=== PATIENT | female | born 1995 | race Caucasian/White ===

== ENCOUNTER 2023-09-27 15:08 | Emergency (ER) | payer BC, SELFPAY ==
[2023-09-27 15:24] VITALS: BP 118/74; PULSE 75; RESP 16; TEMP 36.2; O2SAT 100; BMI 28.2
--- NOTE | 2023-09-27 15:37 | ED_ITS ---
HPI - General Adult General Chief complaint: Extremity Pain/Injury, Upper Stated complaint: R shoulder pain Time Seen by Provider: 09/27/23 15:31 Source: patient Mode of arrival: ambulatory Limitations: no limitations History of Present Illness HPI narrative: 28-year-old female coming in today complaining of shoulder pain. She states that she injured her shoulder while your question having trouble on and off. 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 She denies any sharp shooting pains which she is not short of breath. She denies any recent injuries. She does not take any daily medications. She denies any focal neurologic deficits. She denies any weakness of that arm. She states that it was difficult to move the computer mouse secondary to discomfort when she was at work. Related Data Previous Rx's Medication Instructions Recorded methylprednisolone 4 mg tablets in See Rx Instructions PO .COMPLEX 09/27/23 a dose pack (Medrol (Georgi)) #21 ea Allergies Allergy/AdvReac Type Severity Reaction Status Date / Time No Known Drug Allergies Allergy Verified 09/27/23 15:23 Review of Systems Status of ROS: Reports: 10 or more systems reviewed and unremarkable except as noted in History and below [facility] Social History Do you use any of these nicotine containing products: Vaping Products How often do you have a drink containing alcohol: monthly or less AUDIT-C Alcohol total score: 1 Non-prescribed substance use: denies use service: No Exam Narrative: Exam Narrative: Well-nourished well-developed patient in no acute distress. Alert and oriented. Answers questions appropriately. Mood and affect are appropriate. Thoughts are goal oriented and rational. No tangential or magical thinking noted. Usha ledezma speaks in full sentences without needing to catch her breath. HEENT: Normocephalic atraumatic. Pupils are equally round reactive to light. Extraocular muscles are intact. Conjunctivae are moist without any icterus noted. Moist mucous membranes. Cardiovascular: Heart is regular rate and rhythm. Lungs: Clear to auscultation bilaterally. No pain with deep inspiration. Extremities: Normal appearance. She has acne on her back but no new rashes noted over the the tender area. She complains of tenderness with palpation just superior to the scapula. She has full range of motion at the shoulder. She has mild discomfort with external rotation against resistance. She has no deltoid weakness. She has a normal arc. She has a negative make Neer's test. 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 She has no weakness at the elbow or wrist. She has no pain over the cervical spine. No pain with movement of the neck. No pain in the axillary region. Const: Vital Signs, click to edit/add: Vital Signs - 24 hr 09/27/23 15:24 Temperature 97.2 F L Pulse Rate [Pulse Oximeter] 75 Respiratory Rate 16 Blood Pressure [Ri ght Upper Arm] 118/74 Pulse Oximetry 100 Oxygen Delivery Me thod Room Air Course Course ED Course: Toradol 60 mg IM given in the ED today. Vital Signs Vital signs: Initial Vital Signs Temperature 97.2 F L 09/27/23 15:24 Temperature Source Temporal Artery Scan 09/27/23 15:24 Pulse Rate 75 09/27/23 15:24 Respiratory Rate 16 09/27/23 15:24 Blood Pressure 118/74 09/27/23 15:24 Blood Pressure Mean 88 09/27/23 15:24 Blood Pressure Position Sitting 09/27/23 15:24 Pulse Oximetry 100 09/27/23 15:24 Oxygen Delivery Method Room Air 09/27/23 15:24 Vital Signs Temperature 97.2 F L 09/27/23 15:24 Pulse Rate 75 09/27/23 15:24 Respiratory Rate 16 09/27/23 15:24 Blood Pressure 118/74 09/27/23 15:24 Pulse Oximetry 100 09/27/23 15:24 Oxygen Delivery Method Room Air 09/27/23 15:24 Temperature 97.2 F L 09/27/23 15:24 Pulse Rate 75 09/27/23 15:24 Respiratory Rate 16 09/27/23 15:24 Blood Pressure 118/74 09/27/23 15:24 Pulse Oximetry 100 09/27/23 15:24 Oxygen Delivery Method Room Air 09/27/23 15:24 Medical Decision Making MDM Narrative Medical decision making narrative: 28-year-old female with shoulder pain with minimal cervical radiculopathy. We discussed symptomatic treatment with NSAIDs, heat, gentle stretching. Will do a Medrol Dosepak to see if this helps. Patient was agreeable and had no other questions. Discharge Plan Discharge Clinical Impression: Acute shoulder pain Patient Disposition: Home, Self-Care Condition: Stable Additional Instructions: Okay to continue using ibuprofen, with meals. Okay to use heat to the sore areas needed for 20 minutes at a time. Do not apply heat directly to skin. Recommend gentle stretching and [id number] exercises daily. If this continues to occur, I would recommend you follow-up with your primary care provider to discuss physical therapy. Prescriptions: New methylprednisolone [Medrol (Georgi)] 4 mg tablets,dose pack See Rx Instructions .ROUTE .COMPLEX Qty: 21 0RF Rx Instructions: orally per package directions Stand Alone Forms: [employer] Info Instructions
[2023-09-27] MEDS: KETOROLAC 30 MG/ML inj 60 MG IM (15:39)
== END 2023-09-27 16:05 | disposition home or self-care (01) ==
LOC: ED 15:57
PROVIDERS: Emergency Provider Family Medicine
DX: M25.511 Pain in right shoulder (principal)
CPT/HCPCS: 96372; 99283; 99284; J1885